=== PATIENT | male | born 1945 | race Caucasian/White ===

== ENCOUNTER → 2017-08-02 | Outpatient (CLI) | payer MEDICARE, OTHER ==
[~2017-08-02] MED LIST: ALEVE220 MG PO; CIALIS10 MG PO; DAILY VALUE1 EACH PO; FLOMAX0.4 MG PO; LIPITOR10 MG PO; TUMS500 MG PO
== END | disposition home or self-care (01) ==
LOC: CDC 10:48
DX: Z01.810 Encounter for preprocedural cardiovascular examination (principal)
CPT/HCPCS: 93000